=== PATIENT | male | born 1965 | race Caucasian/White ===

== ENCOUNTER 2023-01-03 09:19 | Emergency (ER) | payer BC, SELFPAY ==
--- NOTE | ~2023-01-03 | CT_ITS ---
EXAMINATION: CT abdomen pelvis w con DATE: 01/03/2023 10:35 INDICATION: Right lower quadrant pain TECHNIQUE: Computed tomography (CT) of the head was performed with 100 cc Omnipaque 350 intravenous c ontrast. The dose-length product was 730.77 mGy-cm. Automated exposure control and iterative reconstr uction technique were employed. COMPARISON: None FINDINGS: The lung bases are unremarkable. Heart size normal. No significant pleural or pericardial e ffusion. The liver, spleen, pancreas, adrenal glands and kidneys are unremarkable. Gallbladder is pre sent. Colonic diverticulosis without evidence for diverticulitis. No free air or free fluid. There is a small fat-containing umbilical hernia. Moderate-severe lower thoracic and lumbar spine. Moderate c olonic fecal loading. Nonobstructive bowel gas pattern. No free air or free fluid. There is bladder w all thickening which may be due to underdistention or cystitis. The appendix is not positively visual ized. There is no pericecal inflammatory change to suggest appendicitis. IMPRESSION: 1. Bladder wall thickening which may be due to underdistention or cystitis. Reviewed, dictated and finalized at location B.
[2023-01-03 09:22] VITALS: BP 157/100; PULSE 99; RESP 18; TEMP 36.7; O2SAT 99
[2023-01-03] MEDS: ONDANSETRON INJ 4 MG/2 ML VIAL IV PUSH (09:45)
[2023-01-03 09:50] LABS: Appearance Urine Clear (Clear); Bilirubin Urine Negative (Negative); Blood Urine Negative (Negative); Color Urine Yellow (Yellow); Glucose Urine UA 3+ mg/dL (Negative); Ketones Urine Negative (Negative); Leukocyte Esterase Ur Negative LEU/UL (Negative); Nitrate Urine Negative (Negative); Protein Urine Negative (Negative); Specific Grav Ur 1.026 (1.001-1.035)
[2023-01-03 09:51] LABS: Add Urine Microscopic? NO
[2023-01-03 09:52] LABS: Basophils Percent Auto 0.8 % (0.2-1.2); Eosinophils Absolute Auto 0.1 K/mm3 (0-0.3); Eosinophils Percent Auto 1.4 % (0-4.4); Hematocrit 46.8 % (42.0-52.0); Hemoglobin 15.5 g/dL (14.0-18.0); Immature Granulocyte Absolute 0.02 K/mm3 (0.00-0.031); Immature Granulocyte Percent A 0.4 % (0-0.5); Lymphocytes Absolute Auto 1.17 K/mm3 (0.9-3.2); Lymphocytes Percent Auto 22.9 % (18.3-44.2); Mean Corpuscular HGB Conc 33.1 g/dl (32-36); Mean Corpuscular Hemoglobin 32.6 pg (26-34); Mean Corpuscular Volume 98.3 fl (80-100); Mean Platelet Volume 9.8 fl (7.4-10.4); Monocytes Absolute Auto 0.5 K/mm3 (0.1-0.6); Monocytes Percent Auto 10.2 % (2.6-8.5); Neutrophils Absolute Auto 3.3 K/mm3 (1.3-6.7); Neutrophils Percent Auto 64.3 % (45.5-73.1); Platelet Count Result 149 k/mm3 (150-375); Red Blood Count 4.76 M/mm3 (4.6-6.20); Red Cell Distribution Width 11.9 % (11.5-14.5); White Blood Count 5.1 K/mm3 (4.5-10.0)
[2023-01-03 10:01] LABS: Alanine Aminotransferase 32 U/L (6-50); Albumin Level 4.6 g/dL (3.5-5.1); Alkaline Phosphatase 44 U/L (38-126); Anion Gap 8 mmol/L (8-16); Aspartate Amino Transferase 32 U/L (17-59); Bilirubin,Total 0.9 mg/dL (0.2-1.3); Blood Urea Nitrogen 12 mg/dL (9-20); Calcium 9.3 mg/dL (8.4-10.2); Carbon Dioxide 28 mmol/L (22-30); Chloride 101 mmol/L (98-107); Estimated CRCL calculation 123 ml/min; Estimated Glomerular Filt Rate > 60; Glucose 128 mg/dL (65-110); Lipase 65 U/L (23-300); Potassium 4.2 mmol/L (3.4-5.0); Sodium 137 mmol/L (137-145)
--- NOTE | 2023-01-03 10:17 | ED.ABDPAIN ---
HPI - Abdominal Pain General Chief Complaint: Abdominal Pain Stated Complaint: N/V, abd pain Time Seen by Provider: 01/03/23 09:30 History of Present Illness HPI narrative: 57-year-old male presented emergency department for evaluation of right lower quadrant pain. Patient states the pain began approximately 3 days ago, patient states he has had persistent nausea and vomiting and worsening pain since that time. Patient is traveling back from [place] back to home in [place]. Patient reports that symptoms became so bad that he was unable to continue the drive. 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 Patient has no prior history of appendectomy or of kidney stones. Related Data Allergies Allergy/AdvReac Type Severity Reaction Status Date / Time No Known Allergies Allergy Verified 01/03/23 09:42 Review of Systems Review of Systems: All systems reviewed & are unremarkable except as noted in HPI and below Exam Narrative: APPEARANCE: Distress secondary to abdominal pain HEAD: normocephalic, atraumatic. EYES: PERRLA/EOMI, conjunctivae clear. NOSE: Normal no drainage NECK: Supple. No adenopathy, no masses. RESPIRATORY: Airway patent, respirations nonlabored. Clear to auscultation bilaterally, no rales, rhonchi, wheezing. CARDIOVASCULAR: Regular rate and rhythm without murmurs rubs or gallops. ABDOMINAL: Mild right CVA and right lower quadrant tenderness to palpation, patient is having pain but pain is not reproduced with tenderness to palpation. MUSCULOSKELETAL: Moves all extremities. Strength/ROM intact, No edema, No calf tenderness. NEURO: Alert. Cranial nerves II through XII intact. SKIN: Warm, dry. Normal Color Course Course Emergency Course: 57-year-old male presented ED for evaluation of nausea vomiting and abdominal pain. Patient is afebrile with no leukocytosis and a stable hemoglobin. Patient has a normal CMP with no elevation in T. bili AST ALT alk phos or lipase. UA shows glucose but no evidence of hematuria. Patient was provided IV Zofran and IV Dilaudid Patient's glucose was mildly elevated but no evidence of DKA. No evidence of urinary tract infection. CT scan showed bladder wall thickening but no other acute findings such as diverticulitis colitis appendicitis. Patient did feel improved with treatment. Vital Signs Vital signs: Vital Signs Temperature 98.1 F 01/03/23 09:22 Pulse Rate 99 01/03/23 09:22 Respiratory Rate 18 01/03/23 09:22 Blood Pressure 157/100 H 01/03/23 09:22 Pulse Oximetry 99 01/03/23 09:22 Oxygen Delivery Room Air 01/03/23 09:22 Temperature 98.1 F 01/03/23 09:22 Pulse Rate 83 01/03/23 12:32 Respiratory Rate 18 01/03/23 12:32 Blood Pressure 140/83 01/03/23 12:32 Pulse Oximetry 99 01/03/23 12:32 Oxygen Delivery Room Air 01/03/23 09:22 MDM - Abdominal Pain Differential Diagnosis Differential diagnosis: Likely abdominal pain, acute appendicitis, calculus of kidney, constipation, diverticulitis, endometriosis, gastroenteritis, pancreatitis and small bowel obstruction Lab Data Attestation: I reviewed the patient's lab results. 01/03/23 09:40 01/03/23 09:40 Labs: Lab Results 01/03/23 Range/Units 09:40 WBC 5.1 (4.5-10.0) K/mm3 RBC 4.76 (4.6-6.20) M/mm3 Hgb 15.5 (14.0-18.0) g/dL Hct 46.8 (42.0-52.0) % MCV 98.3 (80-100) fl MCH 32.6 (26-34) pg MCHC 33.1 (32-36) g/dl RDW 11.9 (11.5-14.5) % Plt Count 149 L (150-375) k/mm3 MPV 9.8 (7.4-10.4) fl Immature Gran % (Auto) 0.4 (0-0.5) % Neut % (Auto) 64.3 (45.5-73.1) % Lymph % (Auto) 22.9 (18.3-44.2) % [place] % (Auto) 10.2 H (2.6-8.5) % Eos % (Auto) 1.4 (0-4.4) % Baso % (Auto) 0.8 (0.2-1.2) % Lymph # (Auto) 1.17 (0.9-3.2) K/mm3 [place] # (Auto) 0.5 (0.1-0.6) K/mm3 Eos # (Auto) 0.1 (0-0.3) K/mm3 Baso # (Auto) 0.0 (0.0-0.1) K/mm3 Abs Immat Gran (auto)
[2023-01-03] MEDS: HYDROmorphone HCL INJ (*CRX) 1 MG/ML SYR IV PUSH (10:49)
[2023-01-03] MEDS: SODIUM CHLORIDE 0.9% IV 1,000 ML 999 ML IV CONT (10:49)
[2023-01-03 11:20] VITALS: BP 133/81; PULSE 90; RESP 18; O2SAT 97
[2023-01-03] MEDS: METOCLOPRAMIDE HCL INJ 10 MG/2 ML VIAL IV PUSH (12:14)
[2023-01-03] MEDS: KETOROLAC 15 MG/ML VIAL (*BKC) IV PUSH (12:14)
[2023-01-03 12:32] VITALS: BP 140/83; PULSE 83; RESP 18; O2SAT 99
== END 2023-01-03 12:33 | disposition home or self-care (01) ==
PROVIDERS: Emergency Provider Emergency Medicine
DX: R11.2 Nausea with vomiting, unspecified (principal); R10.31 Right lower quadrant pain
CPT/HCPCS: 36415; 74177; 80053; 81003; 83690; 85025; 96361; 96374; 96375; 99284; J1170; J1885; J2405; J2765; J7030; Q9967